=== PATIENT | female | born 1955 | race Caucasian/White ===

== ENCOUNTER 2021-07-25 10:26 | Outpatient (CLI) | payer MEDICARE | END 2021-07-25 10:27 | disposition home or self-care (01) | LOC: CSHRAD 10:26 | PROVIDERS: ATTEND Nurse Practitioner Adult Health | DX: R05.9 Cough, unspecified (principal); F17.200 Nicotine dependence, unspecified, uncomplicated; R06.02 Shortness of breath; R53.83 Other fatigue | CPT/HCPCS: 71046 ==

== ENCOUNTER 2021-11-28 11:52 | Outpatient (CLI) | payer MEDICARE ==
[2021-11-28 21:27] LABS: SARS-CoV-2 PCR by NAA Not Detected (NotDetected)
== END 2021-11-28 11:53 | disposition home or self-care (01) ==
LOC: CSHLAB 11:52
PROVIDERS: ATTEND Nurse Practitioner Adult Health
DX: Z20.822 Contact with and (suspected) exposure to COVID-19 (principal)
CPT/HCPCS: U0003; U0005

== ENCOUNTER 2021-12-03 10:03 | Outpatient (CLI) | payer MEDICARE | END 2021-12-03 10:04 | disposition home or self-care (01) | LOC: CSHCP 10:03 | PROVIDERS: ATTEND Nurse Practitioner Adult Health | DX: J44.9 Chronic obstructive pulmonary disease, unspecified (principal) | CPT/HCPCS: 94060; 94726; 94729; 94760 ==

== ENCOUNTER 2023-01-30 13:02 | Emergency (ER) | payer MEDICARE ==
[2023-01-30] MEDS ORDERED: Ondansetron PF 4 MG/2 ML Vial ONE (14:18)
[2023-01-30 14:29] LABS: #Basophils 0.1 10x3/uL (0.0-0.2); #Eosinphils 0.1 10x3/uL (0.0-0.5); #Monocytes 0.5 10x3/uL (0.0-1.1); %Basophils 0.6 % (0.0-2.0); %Eosinophils 0.7 % (0.0-6.0); %Lymphocytes 31.2 % (18.0-47.0); %Monocytes 5.8 % (0.0-10.0); %Neutrophils 61.2 % (40.0-75.0); Hematocrit 37.1 % (34.9-44.5); Hemoglobin 12.5 g/dL (12.0-15.5); Mean Corpuscular HGB CONC 33.7 g/dL (32.0-36.0); Mean Corpuscular Hemoglobin 32.6 pg (27.0-33.0); Mean Corpuscular Volume 96.6 fl (81.6-98.3); Mean Platelet Volume 9.6 fl (7.4-10.4); Platelet Count 337 10x3/uL (150-450); RBC Distribution Width 12.8 % (11.5-14.5); Red Blood Cell (RBC) Count 3.84 10x6/uL (3.90-5.03); White Blood Cell (WBC) Count 8.2 10x3/uL (3.5-10.5)
[2023-01-30 14:40] LABS: ALT (SGPT) 17 U/L (8-55); AST (SGOT) 23 U/L (5-34); Albumin 2.7 g/dL (3.4-4.8); Alkaline Phosphatase 88 U/L (40-110); Anion Gap 11 mmol/L (10-20); BUN (Urea Nitrogen) 16 mg/dL (9.8-20.1); Bilirubin, Total 0.2 mg/dL (0.2-1.2); Calc. Creatinine Clearance 0 mL/min (70-130); Calcium 8.2 mg/dL (7.8-10.44); Carbon Dioxide 23 mmol/L (23-31); Chloride 109 mmol/L (98-107); Estimated GFR 81; Globulin 2.8 g/dL (2.4-3.5); Glucose 107 mg/dL (80-115); Lipase 33 U/L (8-78); Potassium 4.2 mmol/L (3.5-5.1); Protein, Total 5.5 g/dL (5.8-8.1); Sodium 139 mmol/L (136-145)
[2023-01-30 14:42] LABS: Bilirubin Neg (Negative); Blood, Urine Negative (Negative); Glucose, Urine (Dipstick) Normal (Negative); Ketone, Urine Negative (Negative); Leukocyte 25 (Negative); Nitrite Negative (Negative); Protein, Urine (Dipstick) 15 mg/dl (Neg-Trace); Urobilinogen Normal mg/dL (Less than 2)
[2023-01-30 14:45] LABS: Clarity Hazy (Clear)
[2023-01-30 14:58] LABS: Bacteria/HPF 1+ HPF (None Seen); CAUTI Indications for Culture Dysuria,urgency,freq; Calcium Oxalate Crystals Rare HPF (None Seen); RBC/HPF None Seen HPF (0-3); WBC/HPF 0-3 HPF (0-3)
[2023-01-30 14:59] LABS: Urine Culture Reflex No No
== END 2023-01-30 18:51 | disposition home or self-care (01) ==
LOC: CSHERS 13:02
DX: R19.7 Diarrhea, unspecified (principal); E78.00 Pure hypercholesterolemia, unspecified; Z87.891 Personal history of nicotine dependence; R11.2 Nausea with vomiting, unspecified; K59.89 Other specified functional intestinal disorders
CPT/HCPCS: 36415; 80053; 81001; 83605; 83690; 85025; 87177; 87324; 87449; 87507; 93005; 96374; J2405

== ENCOUNTER 2025-02-21 15:39 | Outpatient (CLI) | payer MEDICARE | END 2025-02-21 15:40 | disposition home or self-care (01) | LOC: CSHRAD 15:39 | DX: R06.09 Other forms of dyspnea (principal) | CPT/HCPCS: 71046 ==